=== PATIENT | male | born 1965 | race African-American/Black ===

== ENCOUNTER 2019-05-07 18:27 | Emergency (ER) | payer MEDICARE ==
[2019-05-07] MEDS ORDERED: Diazepam TAB(*) 5 MG PO ONE (18:52)
--- NOTE | 2019-05-07 19:00 | ED ---
Back Pain - HPI Summary HPI Summary: Complains of sudden onset right lower back pain after bending over today. States pain radiates down right leg. States history of right lower back pain, but never has had pain radiating down right leg. Also complains of new onset pain to right miller and top of right foot. Denies fever, cough, sore throat, CP , SOB, N/V/D, abdominal pain, change in urine, change in BM. Naproxen taken at 1600. - History of Current Complaint Chief Complaint: EDBackInjuryPain Stated Complaint: BACK/RIGHT LEG PAIN PER PT Time Seen by Provider: 05/07/19 18:47 Hx Obtained From: Patient Onset/Duration: Sudden Onset Onset/Duration: Started Hours Ago Timing: Constant Back Pain Location: Is Discrete @ Severity Initially: Severe Severity Currently: Severe Pain Intensity: 9 Pain Scale Used: 0-10 Numeric Character: Aching, Throbbing Aggravating Symptom(s): Movement Alleviating Symptom(s): Position Associated Signs And Symptoms: Positive: Negative - Allergies/Home Medications Allergies/Adverse Reactions: Allergies Allergy/AdvReac Type Severity Reaction Status Date / Time No Known Allergies Allergy Verified 05/07/19 18:33 PMH/Surg Hx/FS Hx/Imm Hx Endocrine/Hematology History: Denies: Hx Diabetes, Hx Thyroid Disease Cardiovascular History: Reports: Hx Hypertension Denies: Hx Congestive Heart Failure, Hx Pacemaker/ICD Respiratory History: Denies: Hx Asthma GI History: Denies: Hx Ulcer History: Denies: Hx Renal Disease Sensory History: Reports: Hx Contacts or Glasses Denies: Hx Hearing Aid Opthamlomology History: Reports: Hx Contacts or Glasses EENT History: Denies: Hx Deafness Neurological History: Denies: Hx Dementia Psychiatric History: Denies: Hx Panic Disorder - Surgical History Surgery Procedure, Year, and Place: RETINA SURGERY - RT EYE -CLEARED VIA CT SCAN [place] [address] SAMUELS. LASER EYE SURGERY Infectious Disease History: No Infectious Disease History: Reports: History Other Infectious Disease - syphilis Denies: Hx Clostridium Difficile, Hx Hepatitis, Hx Human Immunodeficiency Virus (HIV), Hx of Known/Suspected MRSA, Hx Shingles, Hx Tuberculosis, Hx Known/ Suspected VRE, Hx Known/Suspected VRSA, Traveled Outside the [place] in Last 30 Days - Family History Known Family History: Positive: None Family History: no reported cardiovascular issues in family lineage - Social History Alcohol Use: None Substance Use Type: Reports: None Smoking Status (MU): Never Smoked Tobacco Review of Systems Constitutional: Negative Eyes: Negative ENT: Negative Cardiovascular: Negative Respiratory: Negative Gastrointestinal: Negative Genitourinary: Negative Musculoskeletal: Other Skin: Negative Neurological: Negative Psychological: Normal All Other Systems Reviewed And Are Negative: Yes Physical Exam - Summary Physical Exam Summary: Mild pain with palpation of right lumbar paraspinal muscles. PMS intact distally on right lower extremity. Patient ambulatory. Triage Information Reviewed: Yes Vital Signs On Initial Exam: Initial Vitals Temp Pulse Resp BP Pulse Ox 98.0 F 75 20 125/67 99 05/07/19 18:29 05/07/19 18:29 05/07/19 18:29 05/07/19 18:29 05/07/19 18:29 Vital Signs Reviewed: Yes Appearance: Positive: Well-Appearing Skin: Positive: Warm Head/Face: Positive: Normal Head/Face Inspection Eyes: Positive: Normal Neck: Positive: Supple Respiratory/Lung Sounds: Positive: Clear to Auscultation Cardiovascular: Positive: Normal Abdomen Description: Positive: Nontender Musculoskeletal: Positive: Normal Neurological: Positive: Normal Psychiatric: Positive: Normal AVPU Assessment: Alert - [place]orne Coma Scale Best Eye Response: 4 - Spontaneous Best Motor Response: 6 - Obeys Commands Best Verbal Response: 5 - Oriented Coma Scale Total: 15 Diagnostics - Vital Signs Vital Signs Temp Pulse Resp BP Pulse Ox 05/07/19 18:29 98.0 F 75 20 125/67 99 - Laboratory Lab Statement: Any lab studies that have been ordered have been reviewed, and results considered in the medical decision making process. Back Pain Course/Dx - Course Course Of Treatment: Complains of sudden onset right lower back pain after bending over today. States pain radiates down right leg. States history of right lower back pain, but never has had pain radiating down right leg. Also complains of new onset pain to right miller and top of right foot. Denies fever, cough, sore throat, CP, SOB, N/V/D, abdominal pain, change in urine, change in BM. Naproxen taken at 1600. Physical exam:Mild pain with palpation of right lumbar paraspinal muscles. PMS intact distally on right lower extremity. Patient ambulatory. No erythema, ecchymosis, deformity, swelling noted to right miller or right foot. Nontender. Pulses intact distally. No evidence of trauma. Vital signs within normal limits. Patient back symptoms improved significantly with Valium 5 mg by mouth. Pain to anterior miller not due to trauma per Physical exam. Recommended naproxen. Symptoms persist follow-up with orthopedics Dr. farfan. Patient understands and approves plan. - Diagnoses Provider Diagnoses: Sciatica, Pain in right miller Discharge - Sign-Out/Discharge Documenting (check all that apply): Patient Departure Patient Received Moderate/Deep Sedation with Procedure: No - Discharge Plan Condition: Stable Disposition: HOME Prescriptions: Diazepam TAB(*) [Valium TAB(*)] 5 mg PO TID PRN 2 Days #5 tab MDD 3 tabs PRN Reason: Pain Patient Education Materials: Sciatica (ED), Musculoskeletal Pain (ED), Muscle Spasm (ED) Referrals: No Primary Care Phys,NOPCP [Primary Care Provider] - Natividad Woodson MD [Medical Doctor] - Additional Instructions: Take Valium as directed for back pain. Avoid driving or operating machinery while taking this medication. Follow-up with primary care. Take naproxen for right leg pain. If leg pain lasts longer than a few days follow-up with orthopedics Dr. Woodson for further evaluation. Return to the ED for any new or worsening symptoms. - Billing Disposition and Condition Condition: STABLE Disposition: Home
[2019-05-07] MEDS ORDERED: oxyCODONE TAB* 5 MG TAB PO ONE (20:08)
[2019-05-07 20:34] VITALS: BP 132/75
== END 2019-05-07 20:32 | disposition home or self-care (01) ==
LOC: ED 18:27
DX: M54.30 Sciatica, unspecified side (principal); M54.5 Low back pain; M79.661 Pain in right lower leg
CPT/HCPCS: 99283; A9270-GY

== ENCOUNTER 2019-05-08 19:31 | Emergency (ER) | payer MEDICARE ==
[2019-05-08] MEDS ORDERED: Ketorolac INJ* 30 MG/ML 1 ML VIAL IM ONE (20:07)
[2019-05-08] MEDS ORDERED: oxyCODONE/Acetamin 5/325 MG* TAB PO ONE (20:07)
--- NOTE | 2019-05-08 20:10 | ED ---
Back Pain - HPI Summary HPI Summary: 54-year-old male presents with back pain since yesterday. He states he bent over and felt the pain. States pain radiates down his right leg. States greatest pain from right knee down right miller to foot. Denies any calf pain. No recent travel. No swelling in his legs. No family history of blood clots. Denies any loss of bowel or bladder. No saddle anesthesia. No fevers. No urinary symptoms. No new injury. Was seen here yesterday and placed on Valium and it initially was working and was not working anymore. Has history of high blood pressure. - History of Current Complaint Chief Complaint: EDBackInjuryPain Stated Complaint: PAIN IN RIGHT FOOT/BACK SIDE PER PT Time Seen by Provider: 05/08/19 19:52 Pain Intensity: 10 - Allergies/Home Medications Allergies/Adverse Reactions: Allergies Allergy/AdvReac Type Severity Reaction Status Date / Time No Known Allergies Allergy Verified 05/07/19 18:33 PMH/Surg Hx/FS Hx/Imm Hx Endocrine/Hematology History: Denies: Hx Diabetes, Hx Thyroid Disease Cardiovascular History: Reports: Hx Hypertension Denies: Hx Congestive Heart Failure, Hx Pacemaker/ICD Respiratory History: Denies: Hx Asthma GI History: Denies: Hx Ulcer History: Denies: Hx Renal Disease Sensory History: Reports: Hx Contacts or Glasses Denies: Hx Deafness, Hx Hearing Aid Opthamlomology History: Reports: Hx Contacts or Glasses Neurological History: Denies: Hx Dementia Psychiatric History: Denies: Hx Panic Disorder - Surgical History Surgery Procedure, Year, and Place: RETINA SURGERY - RT EYE -CLEARED VIA CT SCAN [place] [address] SAMUELS. LASER EYE SURGERY Infectious Disease History: No Infectious Disease History: Reports: History Other Infectious Disease - syphilis Denies: Hx Clostridium Difficile, Hx Hepatitis, Hx Human Immunodeficiency Virus (HIV), Hx of Known/Suspected MRSA, Hx Shingles, Hx Tuberculosis, Hx Known/ Suspected VRE, Hx Known/Suspected VRSA, Traveled Outside the [place] in Last 30 Days - Family History Known Family History: Positive: None Family History: no reported cardiovascular issues in family lineage - Social History Alcohol Use: None Substance Use Type: Reports: None Smoking Status (MU): Never Smoked Tobacco Review of Systems Negative: Fever Negative: Chest Pain Negative: Shortness Of Breath Positive: Myalgia - back pain, right leg pain All Other Systems Reviewed And Are Negative: Yes Physical Exam Triage Information Reviewed: Yes Vital Signs On Initial Exam: Initial Vitals Temp Pulse Resp BP Pulse Ox 97.9 F 71 18 133/69 99 05/08/19 19:41 05/08/19 19:41 05/08/19 19:41 05/08/19 19:41 05/08/19 19:41 Vital Signs Reviewed: Yes Appearance: Positive: Well-Appearing Skin: Positive: Warm, Dry Head/Face: Positive: Normal Head/Face Inspection Eyes: Positive: Normal, Conjunctiva Clear ENT: Positive: Pharynx normal Respiratory/Lung Sounds: Positive: Clear to Auscultation, Breath Sounds Present Cardiovascular: Positive: Normal, RRR Abdomen Description: Positive: Nontender, Soft Bowel Sounds: Positive: Present Musculoskeletal: Positive: Strength/ROM Intact - right leg, Limited @ - back, Other - tenderness over right miller, nontender right calf, good pulses, tenderness over SI joint right, pos SLR right, no midline tenderness back Neurological: Positive: Reflexes Intact - patella, Babinski Right - normal Psychiatric: Positive: Normal Diagnostics - Vital Signs Vital Signs Temp Pulse Resp BP Pulse Ox 05/08/19 19:41 97.9 F 71 18 133/69 99 - Laboratory Lab Statement: Any lab studies that have been ordered have been reviewed, and results considered in the medical decision making process. - CT lumbar CT Interpretation Completed By: Radiologist Summary of CT Findings: IMPRESSION: Mild multilevel lumbar spondylopathy with probable compression of the right L3. and L4 nerve roots. Re-Evaluation - Re-Evaluation First Eval Re-Evaluation Time: 22:09 Change: Improved Comment: feeling better Back Pain Course/Dx - Course Course Of Treatment: 54-year-old male presents with back pain since yesterday. He states he bent over and felt the pain. States pain radiates down his right leg. States greatest pain from right knee down right miller to foot. Denies any calf pain. No recent travel. No swelling in his legs. No family history of blood clots. Denies any loss of bowel or bladder. No saddle anesthesia. No fevers. No urinary symptoms. No new injury. Was seen here yesterday and placed on Valium and it initially was working and was not working anymore. Has history of high blood pressure. On exam tenderness over the right SI joint. Neurovascularly intact. positive SLR right. CT shows spondolysis at L3 -L4 which is where nerve root for pain distrubtion is on patient. gave Toradol and Percocet and feeling better. discussed will treat with muscle relaxer and steriod. told follow up with primary and could concern PT. told if no improvement after such follow up with neurosurgery. patient understand and agrees with plan. - Diagnoses Differential Diagnosis/HQI/PQRI: Positive: Herniated Disc, Strain, Sprain Provider Diagnoses: Back pain Discharge - Sign-Out/Discharge Documenting (check all that apply): Patient Departure Patient Received Moderate/Deep Sedation with Procedure: No - Discharge Plan Condition: Good Disposition: HOME Prescriptions: Cyclobenzaprine TAB* [Flexeril 10 MG TAB*] 10 mg PO TID PRN #21 tab PRN Reason: Pain methylPREDNISolone [Medrol Dosepak 4 MG*] 4 mg PO .SEE CHET INSTRUCTION #1 packet Patient Education Materials: Back Pain (ED) Referrals: [facility] [place] [facility] [Outside] Lele Damon MD [Medical Doctor] - [facility] [place] [facility] [place] [Medical Doctor] - Additional Instructions: Follow directions on package for Medrol pack Take muscle relaxers three times a day Use ibuprofen or Tylenol for pain every 6 hours ice/heat area, move as much as possible Establish care with primary to follow up follow up with PT Follow up with neurosurgery if no improvement Return to ED if develop any new or worsening symptoms - Billing Disposition and Condition Condition: GOOD Disposition: Home
[2019-05-08] MEDS ORDERED: predniSONE TAB* 20 MG PO ONE (22:15)
[2019-05-08 22:21] VITALS: BP 138/78
== END 2019-05-08 22:20 | disposition home or self-care (01) ==
LOC: ED 19:31
DX: M54.9 Dorsalgia, unspecified (principal); M48.9 Spondylopathy, unspecified; M79.604 Pain in right leg; I10 Essential (primary) hypertension
CPT/HCPCS: 72131; 96372; 99282; A9270-GY; J1885; J7512

== ENCOUNTER 2019-06-08 14:54 | Emergency (ER) | payer MEDICARE ==
[2019-06-08 15:03] VITALS: BP 141/90
--- NOTE | 2019-06-08 15:45 | UC ---
General HPI - HPI Summary HPI Summary: Patient is a 55-year-old male who presents to the urgent care with chief complaint of having constipation and hemorrhoids. Patient has been taking over- the-counter medications with no improvement symptoms. He reports itching and occasional pain. Usually the pain is doing bowel movement. Patient denies any abdominal pain, nausea vomiting or diarrhea. He has no other complaints. - History of Current Complaint Chief Complaint: UCGI Stated Complaint: PERSONAL Time Seen by Provider: 06/08/19 15:27 Hx Obtained From: Patient Onset/Duration: Gradual Onset Timing: Constant Onset Severity: Mild Current Severity: Mild Pain Intensity: 3 - Allergy/Home Medications Allergies/Adverse Reactions: Allergies Allergy/AdvReac Type Severity Reaction Status Date / Time No Known Allergies Allergy Verified 06/08/19 15:04 Home Medications: Home Medications Otc Hemorrhoid Cream* PRN 06/08/19 [History] Otc Hemorrhoid Wipe* PRN 06/08/19 [History] PMH/Surg Hx/FS Hx/Imm Hx Previously Healthy: Yes Endocrine History: Dyslipidemia Cardiovascular History: Hypertension Neurological History: CVA - Surgical History Surgical History: Yes Surgery Procedure, Year, and Place: RETINA SURGERY - RT EYE -CLEARED VIA CT SCAN [place] [address] SAMUELS. LASER EYE SURGERY - Family History Known Family History: Positive: None, Non-Contributory Family History: no reported cardiovascular issues in family lineage - Social History Alcohol Use: None Substance Use Type: None Smoking Status (MU): Never Smoked Tobacco - Immunization History Most Recent Influenza Vaccination: unknown Most Recent Tetanus Shot: unknown Most Recent Pneumonia Vaccination: unknown Review of Systems All Other Systems Reviewed And Are Negative: Yes Constitutional: Positive: Negative Skin: Positive: Negative Eyes: Positive: Negative ENT: Positive: Negative Respiratory: Positive: Negative Cardiovascular: Positive: Negative Gastrointestinal: Positive: Other - Constipation, hemorrhoids Motor: Positive: Negative Neurovascular: Positive: Negative Musculoskeletal: Positive: Negative Neurological: Positive: Negative Psychological: Positive: Negative Is Patient Immunocompromised?: No Physical Exam - Summary Physical Exam Summary: VITAL SIGNS: Reviewed. GENERAL: Patient is a well developed and nourished male who is lying comfortable in the stretcher. Patient is not in any acute respiratory distress. HEAD AND FACE: No signs of trauma. No ecchymosis, hematomas or skull depressions. No sinus tenderness. EYES: PERRLA, EOMI x 2, No injected conjunctiva, no nystagmus. EARS: Hearing grossly intact. Ear canals and tympanic membranes are within normal limits. MOUTH: Oropharynx within normal limits. NECK: Supple, trachea is midline, no adenopathy, no JVD, no carotid bruit, no c- spine tenderness, neck with full ROM. CHEST: Symmetric, no tenderness at palpation LUNGS: Clear to auscultation bilaterally. No wheezing or crackles. CVS: Regular rate and rhythm, S1 and S2 present, no murmurs or gallops appreciated. ABDOMEN: Soft, non-tender. No signs of distention. No rebound no guarding, and no masses palpated. Bowel sounds are normal. Rectal exam: Positive small external hemorrhoids, no melena, no bright red per rectum. Chaperoned present. EXTREMITIES: FROM in all major joints, no edema, no cyanosis or clubbing. NEURO: Alert and oriented x 3. No acute neurological deficits. Speech is normal and follows commands. SKIN: Dry and warm Vital Signs: Initial Vital Signs Temp 96.8 F 06/08/19 15:01 Pulse 76 06/08/19 15:01 Resp 18 06/08/19 15:01 BP 141/90 06/08/19 15:01 Pulse Ox 99 06/08/19 15:01 Course/Dx - Course Course Of Treatment: In the urgent care course the patient is comfortable. We discussed prevention for constipation as well as medications. He understands and agrees. The patient will be discharged home with a prescription for Anusol and MiraLAX. If needed he will also by milk of magnesia. The patient will follow-up with the primary care physician in the next 2-3 days. She was instructed to return to the urgent care or go to the emergency room if the symptoms worsen. The patient understands and agrees. Patient was also counseled to follow with the primary care physician for better control of the blood pressure. The patient understands and agrees. - Diagnoses Provider Diagnosis: Constipation, Hemorrhoids, Uncontrolled hypertension Discharge - Sign-Out/Discharge Documenting (check all that apply): Patient Departure All imaging exams completed and their final reports reviewed: No Studies - Discharge Plan Condition: Stable Disposition: HOME Prescriptions: Hydrocortisone SUPP* [Anusol HC Supp*] 25 mg [place] TID #14 supp Polyethylene Glycol 3350* [Miralax*] 17 gm PO DAILY #12 packet Patient Education Materials: Constipation (DC), Hemorrhoids (ED) Referrals: No Primary Care Phys,NOPCP [Primary Care Provider] - [facility] [Outside] Additional Instructions: Take medications as instructed Increase your fluid intake F/U with PCP in the next 2-3 days Return to the UC if symptoms worse - Billing Disposition and Condition Condition: STABLE Disposition: Home
== END 2019-06-08 15:55 | disposition home or self-care (01) ==
LOC: UCEAST 14:54
DX: K59.00 Constipation, unspecified (principal); K64.9 Unspecified hemorrhoids; I10 Essential (primary) hypertension; E78.5 Hyperlipidemia, unspecified
CPT/HCPCS: 99212; G0463

== ENCOUNTER 2019-09-22 18:10 | Observation (INO) | payer MEDICARE ==
[2019-09-22] MEDS ORDERED: Ketorolac INJ* 30 MG/ML 1 ML VIAL IM ONE (18:58)
[2019-09-22] MEDS ORDERED: oxyCODONE/Acetamin 5/325 MG* TAB PO ONE ×2 (18:58→20:01)
--- NOTE | 2019-09-22 19:31 | ED ---
Back Pain - HPI Summary HPI Summary: Pt is a 54 y/o M presenting to the ED with a chief complaint of back pain initially onset about 3 days ago. He has hx of back pain and he was told last time he was here that it was sciatica pain. It shoots down the back of his right leg, and he cannot walk 2/2 pain. He denies numbness or tingling. Patient had similar presentation in April, had a CT of the lumbar spine which showed compression of the nerve roots at L3-L4. No trauma, fevers, bowel or bladder incontinence, new numbness or weakness. - History of Current Complaint Chief Complaint: EDBackInjuryPain Stated Complaint: BACK PAIN PER EMS Time Seen by Provider: 09/22/19 18:26 Hx Obtained From: Patient Onset/Duration: Gradual Onset, Lasting Days, Still Present Onset/Duration: Started Days Ago, Still Present Timing: Constant, Lasting Days Back Pain Location: Is Discrete @ - lower, down back of R leg Severity Initially: Moderate Severity Currently: Severe Pain Intensity: 10 Pain Scale Used: 0-10 Numeric Aggravating Symptom(s): Nothing Alleviating Symptom(s): Nothing Associated Signs And Symptoms: Negative: Numbness, Tingling - Allergies/Home Medications Allergies/Adverse Reactions: Allergies Allergy/AdvReac Type Severity Reaction Status Date / Time No Known Allergies Allergy Verified 09/21/19 15:00 Home Medications: Home Medications Atorvastatin* [Lipitor 10 MG*] 10 mg PO BEDTIME 09/22/19 [History Confirmed ] Chlorthalidone TAB* [Hygroton TAB*] 25 mg PO DAILY 09/22/19 [History Confirmed 09/22/19] Lisinopril TAB* [Prinivil TAB 10 MG*] 20 mg PO BID 09/22/19 [History Confirmed 09/22/19] PMH/Surg Hx/FS Hx/Imm Hx Previously Healthy: Yes Endocrine/Hematology History: Denies: Hx Diabetes, Hx Thyroid Disease Cardiovascular History: Reports: Hx Hypertension Denies: Hx Congestive Heart Failure, Hx Pacemaker/ICD Respiratory History: Denies: Hx Asthma GI History: Denies: Hx Ulcer History: Denies: Hx Renal Disease Sensory History: Reports: Hx Contacts or Glasses Denies: Hx Deafness, Hx Hearing Aid Opthamlomology History: Reports: Hx Contacts or Glasses Neurological History: Denies: Hx Dementia Psychiatric History: Denies: Hx Panic Disorder - Surgical History Surgery Procedure, Year, and Place: RETINA SURGERY - RT EYE -CLEARED VIA CT SCAN [place] [address] SAMUELS. LASER EYE SURGERY Infectious Disease History: No Infectious Disease History: Reports: History Other Infectious Disease - syphilis Denies: Hx Clostridium Difficile, Hx Hepatitis, Hx Human Immunodeficiency Virus (HIV), Hx of Known/Suspected MRSA, Hx Shingles, Hx Tuberculosis, Hx Known/ Suspected VRE, Hx Known/Suspected VRSA, Traveled Outside the [place] in Last 30 Days - Family History Known Family History: Negative: Cardiac Disease - Social History Alcohol Use: None Hx Substance Use: No Substance Use Type: Reports: None Hx Tobacco Use: No Smoking Status (MU): Never Smoked Tobacco Review of Systems Positive: Myalgia Negative: Weakness, Numbness All Other Systems Reviewed And Are Negative: Yes Physical Exam - Summary Physical Exam Summary: Constitutional: Well-developed, Well-nourished, Alert. (-) Distressed Skin: Warm, Dry HENT: Normocephalic; Atraumatic Eyes: Conjunctiva normal Neck: Musculoskeletal ROM normal neck. (-) JVD, (-) Stridor, (-) Nuchal rigidity Cardio: Rhythm regular, rate normal, Heart sounds normal; Intact distal pulses; Radial pulses are 2+ and symmetric. (-) Murmur Pulmonary/Chest wall: Effort normal. (-) Respiratory distress, (-) Wheezes, (-) Rales Abd: Soft, (-) tenderness, (-) Distension, (-) Guarding, (-) Rebound Musculoskeletal: (-) Edema. Positive straight leg raise on R. Tenderness to SI joint. No midline lumbar tenderness. 5/5 strength RLE. Lymph: (-) Cervical adenopathy Neuro: Alert, Oriented x3 Psych: Mood and affect Normal Triage Information Reviewed: Yes Vital Signs On Initial Exam: Initial Vitals Temp Pulse Resp BP Pulse Ox 98.5 F 65 18 132/73 96 09/22/19 18:12 09/22/19 18:12 09/22/19 18:12 09/22/19 18:12 09/22/19 18:12 Vital Signs Reviewed: Yes Procedures - Sedation Patient Received Moderate/Deep Sedation with Procedure: No Diagnostics - Vital Signs Vital Signs Temp Pulse Resp BP Pulse Ox 09/22/19 19:21 18 09/22/19 18:12 98.5 F 65 18 132/73 96 - Laboratory Lab Statement: Any lab studies that have been ordered have been reviewed, and results considered in the medical decision making process. Re-Evaluation - Re-Evaluation 1st re-eval Re-Evaluation Time: 20:00 Change: Unchanged Comment: Pt tried to ambulate, still had back pain. Will give one more dose of pain meds. 2nd re-eval Re-Evaluation Time: 21:00 Change: Unchanged Comment: Pt will not walk but pain is improved. Will give Valium. 3rd re-eval Re-Evaluation Time: 22:21 Change: Unchanged Comment: Still having significant pain. Dr. Lackey accepts. 2100 Change: Unchanged Comment: Pt unable to walk 2/2 pain. Back Pain Course/Dx - Course Course Of Treatment: 54-year-old male history of sciatica presents with lower back pain. Back pain ddx. This patient does not have red flags for emergent cause of back pain. - Spinal metastasis - No constitutional symptoms, weight loss, or known primary cancer to suggest met to spine. - Epidural abscess/ osteomyelitis/discitis - No fever/IVDU/indwelling lines to suggest epidural abscess, osteomyelitis, or discitis. - Fracture - No trauma/osteoporosis/lead ramp agent steroid use to suggest fracture. - PNA/PTX/PE - No respiratory symptoms to suggest PNA, PTX or PE. - Pyelo/renal stone - No fevers or urinary symptoms to suggest pyelo or renal stone. - Pancreatitis - No epigastric tenderness or GI sx to suggest pancreatitis. - Cauda equina - No bilateral LE weakness/loss of sensation, or loss of urine/bladder control. Therefore imaging/further studies not obtained in emergency department, and likely can safely be deferred to outpatient setting. Will give pain control and reasses. - Diagnoses Provider Diagnoses: Sciatica Discharge ED - Sign-Out/Discharge Documenting (check all that apply): Patient Departure - Discharge Plan Condition: Stable Disposition: ADMITTED TO [facility] - Billing Disposition and Condition Condition: STABLE Disposition: Admitted to [facility] - Attestation Statements Document Initiated by Scribe: Yes Documenting Scribe: Sammie Ramirez Provider For Whom Scribe is Documenting (Include Credential): Ledy Davies MD. Scribe Attestation: I, Sammie Ramirez, scribed for Ledy Davies MD. on 09/23/19 at 1323. Scribe Documentation Reviewed: Yes Provider Attestation: The documentation as recorded by the scribe, Sammie Ramirez accurately reflects the service I personally performed and the decisions made by me, Ledy Davies MD. Status of Scribe Document: Viewed Consult Consult: 2220 - Dr. Lackey accepts pt for admission.
[2019-09-22] MEDS ORDERED: Diazepam TAB(*) 5 MG PO ONE (21:00)
[2019-09-22] MEDS ORDERED: Ketorolac INJ* 30 MG/ML 1 ML VIAL IV PUSH PRN (23:31)
[2019-09-22] MEDS ORDERED: methylPREDNISolone TAB* 4 MG PO ONE (23:43)
[2019-09-23] MEDS ORDERED: Cyclobenzaprine TAB* 10 MG PO PRN (00:10)
--- NOTE | 2019-09-23 00:54 | HP ---
CC: Elmer Saxena NP * HISTORY AND PHYSICAL: DATE OF ADMISSION: 09/22/19 PRIMARY CARE PROVIDER: Elmer Saxena NP CHIEF COMPLAINT: Right leg pain. HISTORY OF PRESENT ILLNESS: Mr. Hightower is a 54-year-old male who has a history of hypertension, hyperlipidemia, and right thalamic CVA in the past, who presents to the emergency room with complaints of 3 days of right leg pain. The patient states that approximately 3 days ago he began to develop what he describes as sharp stabbing pain going from his mid buttock, down the posterior thigh, wrapping around to the front of the leg and going to the toes. This has gotten progressively worse over the last 3 days. He does note that the pain higher up in the leg, is more sharp or stabbing in the toes, it feels like it is burning or tingling. He states the pain is so severe that he is unable to walk. His most comfortable position is lying flat in bed. He received many medications in the emergency room and despite this was unable to ambulate and therefore the hospitalist service is being asked to admit the patient under observation status. PAST MEDICAL HISTORY: 1. Hypertension. 2. Right thalamic CVA. 3. Hyperlipidemia. PAST SURGICAL HISTORY: 1. Right retina detachment repair. 2. LASIK surgery to the left eye. MEDICATIONS: 1. Naproxen 500 mg p.o. daily. 2. Aspirin 81 mg p.o. daily. 3. Lipitor 10 mg p.o. q.h.s. 4. Chlorthalidone 25 mg p.o. daily. 5. Lisinopril 20 mg p.o. b.i.d. 6. Metoprolol tartrate 25 mg p.o. daily. 7. Potassium chloride 20 mEq p.o. daily. ALLERGIES: No known drug allergies. FAMILY HISTORY: Dad at the age of 72 of a CVA. Mom is living, she has diabetes. The patient has a brother, who is living with hypertension and diabetes, and a sister with hypertension. SOCIAL HISTORY: The patient is a nonsmoker. He does not drink alcohol. 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 He is not . He has 5 children. He indicates that his brother, Lola, will be his healthcare proxy. REVIEW OF SYSTEMS: A complete 11-system review of systems is obtained. Pertinent positives and negatives are as per HPI and otherwise negative. PHYSICAL EXAMINATION GENERAL: The patient is a well-developed, middle-aged male, seen lying flat in the stretcher, in no acute distress. VITAL SIGNS: Blood pressure 126/74, pulse is 53, respiratory rate 16, temp 98.5 , O2 sat 98% on room air. HEENT: Pupils are equal and round. Extraocular muscles are intact. Oropharynx is clear. Oral mucosa is moist. NECK: There is no submandibular, cervical, or supraclavicular adenopathy. PULMONARY: Lungs are clear to auscultation bilaterally. CARDIAC: Normal S1, S2. Regular rate and rhythm. Did not appreciate any murmurs. ABDOMEN: Bowel sounds are present. Abdomen is soft, nontender, nondistended. MUSCULOSKELETAL: The patient moves all 4 extremities symmetrically. NEUROLOGIC: Cranial nerves II through XII are grossly intact. Sensation is intact to light touch throughout. Strength is 5/5 and symmetric in both upper and lower extremities bilaterally. SKIN: There are no rashes. PSYCH: The patient is alert. He is oriented x3. Affect appears appropriate. ASSESSMENT AND PLAN: Mr. Hightower is a 54-year-old male with history of hypertension, hyperlipidemia, past right thalamic cerebrovascular accident, who presented to the emergency room with complaints of severe right leg pain for 3 days. 1. Right sciatica: The patient is describing classic sciatica. At this point , however, he is unable to ambulate due to pain. He has received 2 doses of Percocet, ketorolac, and diazepam in the emergency room. Despite this, he still remains with severe pain upon standing at rest. He is not in much pain at all. He will be admitted for PT evaluation tomorrow. Additionally, he will have IV ketorolac for pain control. I think he may benefit from going on a Medrol Dosepak and I have ordered the first 4 doses of this. I have also ordered p.r.n. Flexeril for spasms. 2. Hypertension: The patient will be maintained on his usual home medication regimen. His blood pressure is under good control. 3. Hyperlipidemia: Continue Lipitor 10 mg q.h.s. 4. DVT prophylaxis: According to the Adult Thrombosis Prophylaxis Risk Factor Assessment Guide, the patient has a total risk factor score of 2, making him moderate risk. Lovenox 40 mg subcutaneous daily will be utilized as DVT prophylaxis. 5. Code status is full. TIME SPENT: Fifty minutes was spent admitting this patient. [id number]/[facility] #: [id number] [place]
[2019-09-23] MEDS ORDERED: Enoxaparin(*) 40 MG/0.4 ML SYR SUBCUT SCH (01:30)
[2019-09-23] MEDS ORDERED: Metoprolol Tartrate TAB* 25 MG PO SCH (09:00)
[2019-09-23] MEDS ORDERED: Potassium Chlor TAB* 20 MEQ TAB.ER PO SCH (09:00)
[2019-09-23] MEDS ORDERED: Chlorthalidone TAB* 50 MG PO SCH (09:00)
[2019-09-23] MEDS ORDERED: Lisinopril TAB* 10 MG PO SCH (09:00)
[2019-09-23] MEDS ORDERED: Aspirin EC TAB* 81 MG TAB.EC PO SCH (09:00)
[2019-09-23 12:47] VITALS: BP 123/73
[2019-09-23] MEDS ORDERED: methylPREDNISolone TAB* 4 MG PO ONE (20:00)
--- NOTE | 2019-09-23 20:38 | DS ---
CC: Elmer Saxena NP * DISCHARGE SUMMARY: DATE OF ADMISSION: 09/22/19 DATE OF DISCHARGE: 09/23/19 PRIMARY CARE PROVIDER: Elmer Saxena NP MY ATTENDING WHILE IN THE HOSPITAL: Dr. Jeane Malagon.* (DICTATED BY KELLI PETER) PRIMARY DISCHARGE DIAGNOSIS: Right-sided S1 radiculopathy. SECONDARY DISCHARGE DIAGNOSES: 1. Hypertension. 2. Right thalamic cerebrovascular accident. 3. Hyperlipidemia. STUDIES DONE WHILE IN THE HOSPITAL: Lumbar spine x-ray from 09/22/19 read as mild multilevel spondylosis. MEDICATIONS AT DISCHARGE: 1. Metoprolol tartrate 25 mg p.o. daily. 2. Potassium chloride 20 mEq p.o. daily. 3. Aspirin 81 mg p.o. daily. 4. Chlorthalidone 25 mg p.o. daily. 5. Lisinopril 20 mg p.o. b.i.d. 6. Lipitor 10 mg p.o. at bedtime. 7. Cyclobenzaprine 10 mg p.o. t.i.d. as needed. 8. Medrol Dosepak 1 pack with taper. 9. Naproxen 500 mg p.o. b.i.d. New medications at discharge: 1. Cyclobenzaprine. 2. Medrol Dosepak. 3. Naproxen. Medications discontinued at discharge: 1. Naproxen 500 mg p.o. daily as needed. HOSPITAL COURSE: This is a brief summary of the patient's presentation. For more details, please see the history and physical from Dr. Ruth Lackey on . In brief, the patient is a 54-year-old male with past medical history significant for the above, who presented to the emergency department with 3 days of worsening pain that had a sudden onset without provoking factor with burning, tingling, and stabbing pain, worse with movement, worse with straight leg raise and that had gotten to the point where he was unable to ambulate. In the emergency department, his pain was resistant to Percocet, Toradol, diazepam. Due to concern for inability to ambulate, the patient was admitted to the hospital. The patient was treated overnight with methylprednisolone, Toradol, and his opioids were not continued. He was prescribed Flexeril for muscle spasms. The patient had a significant improvement in his pain and was able to perform all of his ADLs and functional mobility without very much difficulty with physical therapy. The patient felt he has improved enough to go home. The patient was stable and amenable for discharge on 09/23/19. PHYSICAL EXAM ON THE DAY OF DISCHARGE: General: The patient is a 54-year-old male, who appears stated age and sitting comfortably in bed, in no acute distress. Vital Signs: Temperature 97.9, pulse rate 56, respiratory rate 16, oxygen saturation 98% on room air, blood pressure 123/73. HEENT: Head normocephalic, atraumatic. Sclerae anicteric. No conjunctival injection. Nasal mucosa moist. Oral mucosa moist. No pharyngeal erythema, discharge, or exudate. Neck: Supple, nontender. No lymphadenopathy. No carotid bruits auscultated. No JVD. Cardiac: Regular rate and rhythm. No clicks, murmurs, gallops, or rubs. Pulses are 2+ in the bilateral dorsalis pedis, posterior tibialis, and radial areas. Respiratory: Clear to auscultation bilaterally. No wheezes, rales, or rhonchi. Good air exchange. Abdomen: Soft, nontender, nondistended. Bowel sounds present and normoactive in all 4 quadrants. No hepatosplenomegaly. No abdominal bruits auscultated. No hepatojugular reflux. Genitourinary: No suprapubic or CVA tenderness. Skin: Clean, dry, and intact. No rash. Neuro: Cranial nerves II through XII intact. No focal deficits. No abnormal reflexes. Straight leg raise positive with dorsiflexion of the right foot. No decreased sensation. Antalgic gait. Psychiatric: Pleasant and cooperative. DISCHARGE PLAN BY PROBLEM: 1. Right-sided S1 radiculopathy. This is likely related to a herniated disk and this will likely resolve on its own. The patient has been started on Flexeril. His naproxen dose has been increased. The patient was given Medrol Dosepak and he will be continued on Tylenol as needed. The patient was not requiring opiate therapy and this was not continued at discharge. The patient should follow up with Physical Therapy outpatient and follow up with his primary care provider within 1 week to discuss ongoing treatment for his back pain and if his back pain does not continue to improve or it does not resolve after 6 weeks, an MRI and possible Neurosurgery consultation should be considered. While the patient is on naproxen, chlorthalidone, and lisinopril, his kidney function should be monitored closely for acute kidney injury. The patient has been placed on Medrol Dosepak which he received the first dose while in the hospital. This will be tapered per strategic buyer's recommendations. 2. Hypertension. The patient is currently normotensive. Continue the patient' s chlorthalidone, lisinopril, and metoprolol. 3. History of CVA. Continue the patient's aspirin and statin. No focal deficits on exam. 4. Hyperlipidemia. Continue the patient's statin. DISPOSITION: Home. CONDITION: Stable. TIME SPENT: Approximately 45 minutes was spent on the discharge of this patient , 30 of which was spent [id number] with the patient obtaining history and physical and discussing treatment plan. KELLI PETER [id number]/[facility] #: [id number] [place]
[2019-09-23] MEDS ORDERED: Atorvastatin* 10 MG TAB PO SCH (21:00)
[2019-09-24] MEDS ORDERED: methylPREDNISolone TAB* 4 MG PO ONE (20:00)
[2019-09-25] MEDS ORDERED: methylPREDNISolone TAB* 4 MG PO ONE (20:00)
== END 2019-09-23 13:30 | disposition home or self-care (01) ==
LOC: ED 18:10 → MED 23:31
PROVIDERS: ADMIT Hospitalist; ATTEND Internal Medicine
DX: M54.30 Sciatica, unspecified side (principal); M54.10 Radiculopathy, site unspecified; M54.9 Dorsalgia, unspecified; I10 Essential (primary) hypertension; I63.89 Other cerebral infarction; E78.5 Hyperlipidemia, unspecified; Z79.899 Other long term (current) drug therapy; Z79.82 Long term (current) use of aspirin; Z86.73 Personal history of transient ischemic attack (TIA), and cerebral infarction without residual deficits
CPT/HCPCS: 72110; 96374; 96375; 96376; 99284; A9270-GY; G0378; G8978-GP-CH; G8979-GP-CH; G8980-GP-CH; J1650; J1885; J7509